=== PATIENT | female | born 1990 | race African-American/Black ===

== ENCOUNTER → 2022-08-24 | Outpatient (CLI) | payer OTHER, SELFPAY ==
[2022-08-24 11:12] LABS: T4 Free Direct 0.65 ng/dL (0.76-1.46); Thyroid Stim Hormone (TSH) 2.27 uIU/mL (0.358-3.74)
[2022-08-26 20:01] LABS: Adrenocorticotropic Hormone 59.6 pg/mL (7.2-63.3); Insulin Like Growth Factor 97 ng/mL (91-308)
== END | disposition home or self-care (01) ==
LOC: WOBLAB 09:59
PROVIDERS: Visit Provider Internal Medicine Endocrinology, Diabetes & Metabolism
DX: E23.6 Other disorders of pituitary gland (principal)
CPT/HCPCS: 36415; 82024; 82533; 84305; 84439; 84443